=== PATIENT | female | born 1980 | race Caucasian/White ===

== ENCOUNTER 2017-04-08 12:49 | Observation (INO) | payer OTHER ==
[2017-04-08 12:49] VITALS: BMI 23.1
[2017-04-08] MEDS ORDERED: Sodium Chloride 0.9% 1,000 ML IV ONE ×2 (14:07→18:57)
--- NOTE | 2017-04-08 14:08 | C.PDOC ---
History Of Present Illness 36 year old female, 12 weeks confirmed by US, presents to the ED c/o vomiting. Patient reports her last OBGYN visit was yesterday after which she went [place] [facility] [place] to persistent [place]. She was prescribed antiemetics and discharged home. Shhe reports after getting home she had additional episodes of vomiting and decided to come in today to the ED because it was closer. Patient reports having episodes of hyperemesis in prior pregnancies. Patient denies vaginal bleeding, vaginal discharge, dysuria, hematuria, abdominal pain, back pain. Time Seen by Provider: 04/08/17 13:38 Chief Complaint (Nursing): GI Problem History Per: Patient History/Exam Limitations: no limitations Onset/Duration Of Symptoms: Days Current Symptoms Are (Timing): Still Present Location Of Pain/Discomfort: Diffuse Radiation Of Pain To:: None Associated Symptoms: Nausea, Vomiting Exacerbating Factors: None Alleviating Factors: None Recent travel outside of the [place]: No Additional History Per: Patient Abnormal Vaginal Bleeding: No Past Medical History Reviewed: Historical Data, Nursing Documentation, Vital Signs Vital Signs: Last Vital Signs Temp 98.2 F 04/08/17 13:08 Pulse 88 04/08/17 17:56 Resp 20 04/08/17 17:56 BP 112/76 04/08/17 17:56 Pulse Ox 97 04/08/17 18:54 - Medical History PMH: No Chronic Diseases Denies: Chronic Kidney Disease Surgical History: No Surg Hx Family History: States: Unknown Family Hx - Social History Hx Tobacco Use: No Hx Alcohol Use: No Hx Substance Use: No - Immunization History Hx Tetanus Toxoid Vaccination: No Hx Influenza Vaccination: No Hx Pneumococcal Vaccination: No Review Of Systems Constitutional: Negative for: Fever, Chills Cardiovascular: Negative for: Chest Pain Respiratory: Negative for: Cough, Shortness of Breath Gastrointestinal: Positive for: Nausea, Vomiting. Negative for: Abdominal Pain Genitourinary: Negative for: Dysuria, Hematuria, Vaginal Discharge, Vaginal Bleeding Musculoskeletal: Negative for: Back Pain Skin: Negative for: Rash Neurological: Negative for: Weakness, Numbness Physical Exam - Physical Exam Appears: Non-toxic, No Acute Distress Skin: Normal Color ([place]), Warm, Dry Head: Atraumatic, Normacephalic Nose: No Discharge Oral Mucosa: Moist Neck: Normal ROM, Supple Chest: Symmetrical Cardiovascular: Rhythm Regular, No Murmur Respiratory: Normal Breath Sounds, No Rales, No Rhonchi, No Wheezing Gastrointestinal/Abdominal: Soft, No Tenderness Back: No CVA Tenderness Extremity: Normal ROM, No Pedal Edema, No Calf Tenderness, No Deformity, No Swelling Neurological/Psych: Oriented x3, Normal Speech, Normal Cognition Gait: Steady ED Course And Treatment - Laboratory Results Result Diagrams: 04/08/17 14:17 04/08/17 14:17 O2 Sat by Pulse Oximetry: 97 (On RA) Pulse Ox Interpretation: Normal Progress Note: Plan: -VBG shock panel, Blood work, Pepcid 20 mg IVP, Reglan 10 mg IVP, IV fluids, UA Medical Decision Making Medical Decision Making: Labs show normal ph. Hypokalemic and replacement ordered. UA shows uti. Ketones in urine. Persistent vomiting after 6 hour ED stay. Spoke to ict managers, Dr. Almonte and will admit for hypermesis gravidum with uti. Requesting u/s that was ordered Disposition - Disposition Disposition: HOSPITALIZED Disposition Time: 18:58 Condition: FAIR Forms: [employer] (Luxembourger) - Clinical Impression Clinical Impression: Hyperemesis gravidarum - Scribe Statement The provider has reviewed the documentation as recorded by the Scribe Jordan Lim All medical record entries made by the Scribe were at my direction and personally dictated by me. I have reviewed the chart and agree that the record accurately reflects my personal performance of the history, physical exam, medical decision making, and the department course for this patient. I have also personally directed, reviewed, and agree with the discharge instructions and disposition.
[2017-04-08] MEDS ORDERED: Sodium Chloride 0.9% 1,000 ML ONE (14:19)
[2017-04-08 14:23] LABS: BASO % 0.2 % (0.0-2.0); EOS % 0.5 % (0.0-4.0); HEMOGLOBIN 13.5 g/dL (11.0-16.0); LYMPH # 1.6 K/uL (1.0-4.3); LYMPH % 18.8 % (20.0-40.0); MEAN CELL VOLUME 92.6 fL (81.0-99.0); MEAN CORPUSCULAR HEMOGLOBIN 31.5 pg (27.0-31.0); MEAN PLATELET VOLUME 8.5 fL (7.2-11.7); MONO # 0.5 K/uL (0.0-0.8); MONO % 5.6 % (0.0-10.0); NEUT # 6.3 K/uL (1.8-7.0); NEUT % 74.9 % (50.0-75.0); RBC 4.29 Mil/uL (3.80-5.20); RED CELL DISTRIBUTION WIDTH 14.5 % (11.5-14.5); WHITE BLOOD COUNT 8.4 K/uL (4.8-10.8)
[2017-04-08 14:28] LABS: VENOUS BLOOD GAS BASE EXCESS -4.6 mmol/L (0.0-2.0); VENOUS BLOOD GAS PCO2 32 mmHg (40-60); VENOUS BLOOD GAS PO2 36 mm/Hg (30-55); VENOUS BLOOD PH 7.39 (7.32-7.43)
[2017-04-08] MEDS ORDERED: Pyridoxine HCl 100 mg/ml Inj IV STA (14:36)
[2017-04-08 14:50] LABS: ALBUMIN 4.3 g/dL (3.5-5.0); ALT/SGPT 42 U/L (9-52); AST/SGOT 23 U/L (14-36); BLOOD UREA NITROGEN 5 mg/dL (7-17); CALCIUM 8.7 mg/dl (8.6-10.4); GFR AFRICAN-AMERICAN > 60; GFR NON-AFRICAN AMERICAN > 60; LIPASE 147 U/L (23-300); MAGNESIUM 1.7 mg/dL (1.6-2.3)
[2017-04-08 16:34] LABS: SQUAMOUS EPITHIAL 7 /hpf (0-5); URINE BACTERIA RARE (<OCC); URINE BILIRUBIN NEGATIVE (NEGATIVE); URINE BLOOD 2+ (NEGATIVE); URINE CLARITY Hazy (Clear); URINE COLOR Yellow (YELLOW); URINE GLUCOSE (UA) NORMAL (Normal); URINE LEUKOCYTE ESTERASE 1+ Leu/uL (Negative); URINE NITRATE NEGATIVE (NEGATIVE); URINE PROTEIN 1+ mg/dL (NEGATIVE); URINE UROBILINOGEN NORMAL mg/dL (0.2-1.0)
--- NOTE | 2017-04-08 20:54 | CP.PCM.HP ---
<Carissa Nelson - Last Filed: 04/08/17 21:06> History of Present Illness - History of Present Illness History of Present Illness: CC: "I have been vomiting" HPI: Patient is a 36 year old at 11w5d with RAMILA 10/23/17 by LMP 01/16/17 presents to the ED for nausea and vomiting that started 2 days ago. Patient states that she was seen [place] [facility] [place]. At that time she was discharged with reglan. When she went home she could not keep anything down which prompted this ED visit. Describes vomitus as greenish phelgm. Admits to having associated epigastric pain that is worse when vomiting. Described it as heart burn. Admits to having a headache. Denies dizziness, LOC, CP, palpitations , sob, lower abdominal cramping, urinary symptoms, diarrhea, constipation, vaginal bleeding. OBGYN: Dr. Ernie Gonzales (affiliated with [facility] s/p pelvic ultrasound 2 days ago, per patient "I was 12 weeks" OB Hx: 1. 2002 at term, 7lbs 4oz, at [facility] 2. 2008 at term, 6lbs 10oz, at [facility] 3. 2014 SAB at 17 weeks, induced for no heart rate 4. 2016 at term, 6lbs 4 oz, at [facility] 5. 2017 Ectopic treated with Methotrexate 6. Current FOOD QUALITY TESTER Hx: LMP - 01/16/17 [place] - 11 x regular x 4 days Hx of ovarian cysts Denies Hx of fibroids, abnormal pap smears, STIs Allergies: Morphine (itchy rash) Medications: None Medical Hx: Denies Surgical Hx: Denies Social Hx: Denies alcohol, tobacco, drug use; lives with FOB and three children , unemployed Family Hx: Mother age 52 - HTN ; Father age 56 - Hx of diverticulitis; Family Hx of colon/breast cancer Present on Admission - Present on Admission Any Indicators Present on Admission: No Review of Systems - Constitutional Constitutional: absent: Chills, Fever - EENT Eyes: absent: Change in Vision Ears: absent: Dizziness - Cardiovascular Cardiovascular: Lightheadedness. absent: Chest Pain, Dyspnea, Palpitations - Respiratory Respiratory: absent: Cough, Wheezing - Gastrointestinal Gastrointestinal: Heartburn, Nausea, Vomiting. absent: Cramping - Genitourinary Genitourinary: absent: Dysuria - Neurological Neurological: Headaches. absent: Dizziness Past Patient History - Past Medical History & Family History Past Medical History?: No - Past Social History Smoking Status: Never Smoked - CARDIAC Hx Cardiac Disorders: No - PULMONARY Hx Respiratory Disorders: No - NEUROLOGICAL Hx Neurological Disorder: No - HEENT Hx HEENT Problems: No - RENAL Hx Chronic Kidney Disease: No - ENDOCRINE/METABOLIC Hx Endocrine Disorders: No - HEMATOLOGICAL/ONCOLOGICAL Hx Blood Disorders: No - INTEGUMENTARY Hx Dermatological Problems: No - MUSCULOSKELETAL/RHEUMATOLOGICAL Hx Musculoskeletal Disorders: No Hx Falls: No - GASTROINTESTINAL Hx Gastrointestinal Disorders: No - GENITOURINARY/GYNECOLOGICAL Hx Genitourinary Disorders: No - PSYCHIATRIC Hx Substance Use: No - SURGICAL HISTORY Hx Surgeries: No - ANESTHESIA Hx Anesthesia: No Hx Anesthesia Reactions: No Meds Allergies/Adverse Reactions: Allergies Allergy/AdvReac Type Severity Reaction Status Date / Time morphine Allergy RASH Verified 04/08/17 13:10 Physical Exam - Constitutional Appears: Well, No Acute Distress - Head Exam Head Exam: ATRAUMATIC, NORMAL INSPECTION - Eye Exam Eye Exam: EOMI, Normal appearance, Nystagmus - ENT Exam ENT Exam: Mucous Membranes Moist - Respiratory Exam Respiratory Exam: NORMAL BREATHING PATTERN - Cardiovascular Exam Cardiovascular Exam: REGULAR RHYTHM Additional comments: Epigastric tenderness - GI/Abdominal Exam GI & Abdominal Exam: Soft, Tenderness (lower abdominal tenderness) - Exam Additional comments: SVE: Closed/thick/high - Extremities Exam Extremities exam: Positive for: normal inspection - Back Exam Back exam: NORMAL INSPECTION - Neurological Exam Neurological exam: Alert, Oriented x3 - Psychiatric Exam Psychiatric exam: Normal Affect, Normal Mood - Skin Skin Exam: Dry, Warm Additional comments: Albino Results - Vital Signs Recent Vital Signs: Last Vital Signs Temp 99.0 F 04/08/17 19:25 Pulse 96 H 04/08/17 19:25 Resp 16 04/08/17 19:25 BP 122/79 04/08/17 19:25 Pulse Ox 98 04/08/17 19:25 - Labs Result Diagrams: 04/08/17 14:17 04/08/17 14:17 Labs: Laboratory Results - last 24 hr 04/08/17 04/08/17 04/08/17 14:15 14:17 14:17 WBC 8.4 RBC 4.29 Hgb 13.5 D Hct 39.7 MCV 92.6 D MCH 31.5 H MCHC 34.0 RDW 14.5 Plt Count 248 MPV 8.5 Neut % (Auto) 74.9 Lymph % (Auto) 18.8 L [place] % (Auto) 5.6 Eos % (Auto) 0.5 Baso % (Auto) 0.2 Neut # 6.3 Lymph # 1.6 [place] # 0.5 Eos # 0.0 Baso # 0.0 pO2 36 VBG pH 7.39 VBG pCO2 32 L VBG HCO3 20.5 VBG Total CO2 20.4 L VBG O2 Sat (Calc) 75.4 H VBG Base Excess -4.6 L VBG Potassium 3.0 L Sodium 144.0 139 Chloride 110.0 H 104 Glucose 77 Lactate 0.9 Potassium 3.1 L Carbon Dioxide 25 Anion Gap 13 BUN 5 L Creatinine 0.5 L Est GFR ( Amer) > 60 Est GFR (Non-Af Amer) > 60 Random Glucose 88 Calcium 8.7 Phosphorus 2.8 Magnesium 1.7 Total Bilirubin 0.7 AST 23 ALT 42 Alkaline Phosphatase 46 Total Protein 8.4 H Albumin 4.3 Globulin 4.1 H Albumin/Globulin Ratio 1.0 Lipase 147 Venous Blood Potassium 3.0 L Urine Color Urine Clarity Urine pH Ur Specific [place] Urine Protein Urine Glucose (UA) Urine Ketones Urine Blood Urine Nitrate Urine Bilirubin Urine Urobilinogen Ur Leukocyte Esterase Urine WBC (Auto) Urine RBC (Auto) Ur Squamous Epith Cells Urine Bacteria 04/08/17 16:15 WBC RBC Hgb Hct MCV MCH MCHC RDW Plt Count MPV Neut % (Auto) Lymph % (Auto) Queens % (Auto) Eos % (Auto) Baso % (Auto) Neut # Lymph # [place] # Eos # Baso # pO2 VBG pH VBG pCO2 VBG HCO3 VBG Total CO2 VBG O2 Sat (Calc) VBG Base Excess VBG Potassium Sodium Chloride Glucose Lactate Potassium Carbon Dioxide Anion Gap BUN Creatinine Est GFR ( Amer) Est GFR (Non-Af Amer) Random Glucose Calcium Phosphorus Magnesium Total Bilirubin AST ALT Alkaline Phosphatase Total Protein Albumin Globulin Albumin/Globulin Ratio Lipase Venous Blood Potassium Urine Color Yellow Urine Clarity Hazy Urine pH 5.0 Ur Specific Lay[place] 1.021 Urine Protein 1+ H Urine Glucose (UA) Normal Urine Ketones 2+ H Urine Blood 2+ H Urine Nitrate Negative Urine Bilirubin Negative Urine Urobilinogen Normal Ur Leukocyte Esterase 1+ H Urine WBC (Auto) 14 H Urine RBC (Auto) 11 H Ur Squamous Epith Cells 7 H Urine Bacteria Rare Assessment & Plan - Assessment and Plan (Free Text) Assessment: 36 year old at 11w5d gestation presents with nausea and vomiting x 2 days, inability to tolerate PO, hypokalemia, and ketonuria consistent with hyperemesis gravidarum Plan: Hyperemesis Gravidarum -Admit to FOOD QUALITY TESTER -OB US ordered -Diet: NPO -Fluids: D5/NS with 20meq Kcl at 125cc/hr -Pyridoxine 50mg IV Q24H -Protonix 40mg IVP daily -Reglan 10mg Q6H DEN x 4 doses -F/U am CMP, TSH, Free T4 -SCDs prn -Will continue to monitor -Plan d/w attending Carissa Nelson DO PGY-1 <Riana Almonte A - Last Filed: 04/08/17 22:49> Results - Vital Signs Recent Vital Signs: Last Vital Signs Temp 99.0 F 04/08/17 19:25 Pulse 96 H 04/08/17 19:25 Resp 16 04/08/17 19:25 BP 122/79 04/08/17 19:25 Pulse Ox 98 04/08/17 19:25 - Labs Result Diagrams: 04/08/17 14:17 04/08/17 14:17 Labs: Laboratory Results - last 24 hr 04/08/17 04/08/17 04/08/17 14:15 14:17 14:17 WBC 8.4 RBC 4.29 Hgb 13.5 D Hct 39.7 MCV 92.6 D MCH 31.5 H MCHC 34.0 RDW 14.5 Plt Count 248 MPV 8.5 Neut % (Auto) 74.9 Lymph % (Auto) 18.8 L [place] % (Auto) 5.6 Eos % (Auto) 0.5 Baso % (Auto) 0.2 Neut # 6.3 Lymph # 1.6 [place] # 0.5 Eos # 0.0 Baso # 0.0 pO2 36 VBG pH 7.39 VBG pCO2 32 L VBG HCO3 20.5 VBG Total CO2 20.4 L VBG O2 Sat (Calc) 75.4 H VBG Base Excess -4.6 L VBG Potassium 3.0 L Sodium 144.0 139 Chloride 110.0 H 104 Glucose 77 Lactate 0.9 Potassium 3.1 L Carbon Dioxide 25 Anion Gap 13 BUN 5 L Creatinine 0.5 L Est GFR ( Amer) > 60 Est GFR (Non-Af Amer) > 60 Random Glucose 88 Calcium 8.7 Phosphorus 2.8 Magnesium 1.7 Total Bilirubin 0.7 AST 23 ALT 42 Alkaline Phosphatase 46 Total Protein 8.4 H Albumin 4.3 Globulin 4.1 H Albumin/Globulin Ratio 1.0 Lipase 147 Venous Blood Potassium 3.0 L Urine Color Urine Clarity Urine pH Ur Specific [place] Urine Protein Urine Glucose (UA) Urine Ketones Urine Blood Urine Nitrate Urine Bilirubin Urine Urobilinogen Ur Leukocyte Esterase Urine WBC (Auto) Urine RBC (Auto) Ur Squamous Epith Cells Urine Bacteria 04/08/17 16:15 WBC RBC Hgb Hct MCV MCH MCHC RDW Plt Count MPV Neut % (Auto) Lymph % (Auto) [place] % (Auto) Eos % (Auto) Baso % (Auto) Neut # Lymph # [place] # Eos # Baso # pO2 VBG pH VBG pCO2 VBG HCO3 VBG Total CO2 VBG O2 Sat (Calc) VBG Base Excess VBG Potassium Sodium Chloride Glucose Lactate Potassium Carbon Dioxide Anion Gap BUN Creatinine Est GFR ( Amer) Est GFR (Non-Af Amer) Random Glucose Calcium Phosphorus Magnesium Total Bilirubin AST ALT Alkaline Phosphatase Total Protein Albumin Globulin Albumin/Globulin Ratio Lipase Venous Blood Potassium Urine Color Yellow Urine Clarity Hazy Urine pH 5.0 Ur Specific [place] 1.021 Urine Protein 1+ H Urine Glucose (UA) Normal Urine Ketones 2+ H Urine Blood 2+ H Urine Nitrate Negative Urine Bilirubin Negative Urine Urobilinogen Normal Ur Leukocyte Esterase 1+ H Urine WBC (Auto) 14 H Urine RBC (Auto) 11 H Ur Squamous Epith Cells 7 H Urine Bacteria Rare Attending/Attestation - Attestation I have personally seen and examined this patient.: Yes I have fully participated in the care of the patient.: Yes I have reviewed all pertinent clinical information: Yes
[2017-04-08] MEDS: Potassium Chloride 20 MEQ in Dextrose 5%/0.9% NS 1,000 ML IV SCH (21:45)
--- NOTE | 2017-04-08 21:57 | US ---
EXAM: US First Trimester, Transabdominal EXAM DATE/TIME: Exam ordered 04/08/2017 6:57 PM CLINICAL HISTORY: 36 years old, female; Signs and symptoms; Lmp or gestational age (in weeks): 12w6d; Other: Vomiting , hyperemesis; ; Additional info: , hyperemesis, vomiting TECHNIQUE: Real-time transabdominal obstetrical ultrasound of the maternal pelvis and a first trimester with image documentation. COMPARISON: No relevant prior studies available. FINDINGS: Gestation: There is a single intrauterine . There is a pole with a crown-rump length measurement of 6.4 cm for menstrual age of 12 weeks and 6 days. Cardiac activity is noted at rate of 166 beats per minute. Placenta/amniotic fluid: The placenta is anterior. There is complete placenta previa. Uterus/cervix: The uterus measures 15.2 x 7.5 x 11.4 cm. The cervix is 4.1 cm in length and is closed at the time of the study. No myometrial mass. Ovaries: The right ovary measures 3.2 x 2.4 x 2.5 cm. Subcentimeter follicles are seen in the right ovary. Blood flow is seen in the right ovary color Doppler examination. The left ovary measures 3 x 2 x 2.4 cm. Subcentimeter follicles are seen in the left ovary. No mass. Free fluid: No free fluid. IMPRESSION: 1. Single live intrauterine with an estimated menstrual age of 12 weeks and 6 days plus or minus one week and one day. 2. Complete placenta previa.
[2017-04-08] MEDS ORDERED: SODIUM CHLORIDE 0.9% IV SCH (22:00)
[2017-04-08] MEDS ORDERED: PYRIDOXINE HCL IV SCH (22:00)
[2017-04-08] MEDS ORDERED: Pneumococcal 23-Valent Vaccine IM ONE (22:56)
[2017-04-08] MEDS ORDERED: Influenza Vaccine 60 mcg/0.5 mL SYR (4YR UP) IM ONE (22:57)
[2017-04-09] MEDS: Potassium Chloride 20 MEQ in Dextrose 5%/0.9% NS 1,000 ML IV SCH ×2 (04:50→13:33)
[2017-04-09 08:04] VITALS: RESP 20; O2SAT 99
[2017-04-09 08:29] LABS: ALB/GLOB RATIO 1.5 (1.0-2.1); ALBUMIN 3.6 g/dL (3.5-5.0); ALT/SGPT 37 U/L (9-52); AST/SGOT 18 U/L (14-36); BLOOD UREA NITROGEN 3 mg/dL (7-17); CALCIUM 8.1 mg/dl (8.6-10.4); GFR AFRICAN-AMERICAN > 60; GFR NON-AFRICAN AMERICAN > 60
[2017-04-09] MEDS ORDERED: Potassium Chloride 20 mEq ER Tab PO SCH (10:00)
[2017-04-09 17:10] VITALS: BP 118/70; PULSE 85; TEMP 98.2
[2017-04-10] MEDS ORDERED: Pantoprazole 40 mg EC Tab PO SCH (10:00)
--- NOTE | 2017-04-10 14:32 | DS ---
DISCHARGE DIAGNOSES: 1. Hyperemesis gravidarum. 2. Placenta previa. 3. Urinary tract infection. HISTORY OF PRESENTING ILLNESS: The patient is a 36-year-old female, 6, para 3, and 11 weeks and 5 days with LMP of 01/16/2017 and a due date of 10/23/2017, who presented to the ER with nausea and vomiting for more than 2 days. The patient states that she was seen at another hospital, which was [facility] for similar complaints and discharged home with Reglan. After discharge, at home, she could not keep anything down, and thereafter, she returned to the ED. The vomitus was greenish phlegm. She also complained of epigastric pain when she was vomiting as well as a headache, but she denied chest pain, shortness of breath, lower abdominal cramping, urinary symptoms, diarrhea, constipation, vaginal bleeding. She had care with Dr. Judith Gonzales. PAST MEDICAL HISTORY: She denies. PAST SURGICAL HISTORY: She denies. OBSTETRICS AND GYNECOLOGICAL HISTORY: Her last menstrual period was 01/16/2017. Reported history of ovarian cyst. Denies history of fibroids, abnormal Pap smears, or sexually transmitted diseases. History of 3 term vaginal deliveries, one spontaneous at 17 weeks, and history of an ectopic treated with methotrexate in 2017. PHYSICAL EXAMINATION: VITAL SIGNS: On admission revealed, the patient appeared in no acute distress. LUNGS: Clear to auscultation bilaterally. HEART: S1 and S2 present. ABDOMEN: Soft, and mild tenderness on the lower abdomen, with no rebound or guarding. NEUROLOGIC: She was alert and oriented x3. EXTREMITIES: There was no calf tenderness. HOSPITAL COURSE: The patient was seen in the ER because of nausea, vomiting and epigastric pain. A urinalysis was done and so were the labs done. The urinalysis was positive for protein, blood, ketones, leukocyte esterase, rbc's and wbc's. Hemoglobin was 13.5, and she was noted to have low potassium of 3.1. The patient was thereafter admitted, IV fluids mixed with potassium was started. She was also given vitamin B6. She was started initially on Reglan IV for the nausea. The patient's symptoms improved minimally with IV Reglan; thereafter oral Zofran was added to the regimen. Once on oral Zofran and the Reglan, the patient started tolerating clear liquids and then started tolerating regular diet. At the time of the discharge, the patient was tolerating a regular diet. She was ambulating and voiding without any problems, and she denies any further nausea. The patient was thereafter discharged home with script for Zoanthony, Roxana, Julisas, and a script for Keflex for UTI. The patient should follow up with her primary CAR SALES REPRESENTATIVE, Dr. Philip in 3 days. Pablo Chavez MD
== END 2017-04-09 19:36 | disposition home or self-care (01) ==
LOC: C.ER 12:49 → C.3T 18:55 → INTOOBSV 18:55
PROVIDERS: ADMIT Obstetrics & Gynecology; ATTEND Obstetrics & Gynecology
DX: O21.1 Hyperemesis gravidarum with metabolic disturbance (principal); O23.41 Unspecified infection of urinary tract in pregnancy, first trimester; E87.6 Hypokalemia; O44.01 Complete placenta previa NOS or without hemorrhage, first trimester; O99.281 Endocrine, nutritional and metabolic diseases complicating pregnancy, first trimester; O09.521 Supervision of elderly multigravida, first trimester; Z3A.12 12 weeks gestation of pregnancy
CPT/HCPCS: 36415; 76801; 80053; 81001; 82803; 83690; 83735; 84100; 84439; 84443; 85025; 87086; 87181; 96361; 96374; 96375; 96376; 99285; C9113; G0378; J2765; J3415; J3480; J7040; J7042

== ENCOUNTER 2017-04-22 23:12 | Emergency (ER) | payer OTHER ==
[2017-04-22 23:13] VITALS: BMI 23.1
[2017-04-22] MEDS ORDERED: Sodium Chloride 0.9% 1,000 ML IV ONE (23:26)
[2017-04-22] MEDS ORDERED: Aluminum Hydroxide/Magnesium Hydroxide Susp (30 mL) PO STA (23:26)
[2017-04-22] MEDS ORDERED: Belladonna-Phenobarbital PO STA (23:26)
[2017-04-22 23:36] LABS: BASO % 0.4 % (0.0-2.0); EOS # 0.1 K/uL (0.0-0.7); LYMPH % 17.2 % (20.0-40.0); MEAN CORPUSCULAR HEMOGLOBIN 32.3 pg (27.0-31.0); MEAN CORPUSCULAR HGB CONC 34.7 g/dL (33.0-37.0); MEAN PLATELET VOLUME 8.7 fL (7.2-11.7); MONO # 0.5 K/uL (0.0-0.8); MONO % 8.2 % (0.0-10.0); NEUT # 4.4 K/uL (1.8-7.0); NEUT % 73.2 % (50.0-75.0); NRBC % 0.1 % (0.0-2.0); RBC 4.01 Mil/uL (3.80-5.20); RED CELL DISTRIBUTION WIDTH 14.7 % (11.5-14.5)
[2017-04-22] MEDS ORDERED: Aluminum Hydroxide/Magnesium Hydroxide Susp (30 mL) ONE (23:38)
[2017-04-22] MEDS ORDERED: Sodium Chloride 0.9% 1,000 ML ONE (23:38)
[2017-04-22 23:51] LABS: ALB/GLOB RATIO 0.9 (1.0-2.1); ALBUMIN 4.1 g/dL (3.5-5.0); ALT/SGPT 31 U/L (9-52); AST/SGOT 31 U/L (14-36); BLOOD UREA NITROGEN 8 mg/dL (7-17); CALCIUM 9.2 mg/dl (8.6-10.4); GFR AFRICAN-AMERICAN > 60; GFR NON-AFRICAN AMERICAN > 60; LIPASE 130 U/L (23-300)
--- NOTE | 2017-04-23 00:53 | C.PDOC ---
History Of Present Illness 36 year old female who is 14 weeks present to the ED for evaluation of nausea, vomit all day and also states he is not able to hold anything down. Patient reports she is taking Reglan, Pepcid, and Zofran but is not able to hold the medications down. Patient states she develops a rash from morphine and denies any previous history of surgeries. Patient's recent US showed an IUP. Patient denies abdominal pain, vaginal discharge, vaginal bleeding, back pain. Time Seen by Provider: 04/22/17 23:24 Chief Complaint (Nursing): GI Problem History Per: Patient History/Exam Limitations: no limitations Onset/Duration Of Symptoms: Hrs Current Symptoms Are (Timing): Still Present Radiation Of Pain To:: None Associated Symptoms: Nausea, Vomiting, Loss Of Appetite Exacerbating Factors: None Alleviating Factors: None Recent travel outside of the [place] States: No Additional History Per: Patient Abnormal Vaginal Bleeding: No Past Medical History Reviewed: Historical Data, Nursing Documentation, Vital Signs Vital Signs: Last Vital Signs Temp 97.6 F 04/23/17 05:13 Pulse 85 04/23/17 05:13 Resp 20 04/23/17 05:13 BP 116/70 04/23/17 05:13 Pulse Ox 98 04/23/17 05:13 - Medical History PMH: No Chronic Diseases Denies: Chronic Kidney Disease Surgical History: No Surg Hx Family History: States: Unknown Family Hx - Social History Hx Tobacco Use: No Hx Alcohol Use: No Hx Substance Use: No - Immunization History Hx Tetanus Toxoid Vaccination: No Hx Influenza Vaccination: No Hx Pneumococcal Vaccination: No Review Of Systems Constitutional: Negative for: Fever, Chills Cardiovascular: Negative for: Chest Pain Respiratory: Negative for: Cough, Shortness of Breath Gastrointestinal: Positive for: Nausea, Vomiting. Negative for: Abdominal Pain Genitourinary: Negative for: Vaginal Discharge, Vaginal Bleeding Musculoskeletal: Negative for: Back Pain Skin: Negative for: Rash Neurological: Negative for: Weakness, Numbness Physical Exam - Physical Exam Appears: Non-toxic, No Acute Distress Skin: Normal Color, Warm, Dry Head: Atraumatic, Normacephalic Nose: No Discharge Oral Mucosa: Moist Neck: Normal ROM, Supple Chest: Symmetrical Cardiovascular: Rhythm Regular, No Murmur Respiratory: Normal Breath Sounds, No Rales, No Rhonchi, No Wheezing Gastrointestinal/Abdominal: Soft, No Tenderness Extremity: Normal ROM, No Pedal Edema, No Calf Tenderness, No Deformity, No Swelling Neurological/Psych: Oriented x3, Normal Speech, Normal Cognition Gait: Steady ED Course And Treatment - Laboratory Results Result Diagrams: 04/22/17 23:33 04/22/17 23:33 ECG: Interpreted By Me, Viewed By Me ECG Rhythm: Sinus Rhythm Interpretation Of ECG: NV 130, QRS 76, QTR 420, QTC 481 no ischemic changes Rate From EC O2 Sat by Pulse Oximetry: 98 (On RA) Pulse Ox Interpretation: Normal Medical Decision Making Medical Decision Making: Plan: * IV fluids * Blood work * UA * * Maalox * Magnesium Sulfate * Pepcid * Reglan Disposition - Disposition Referrals: [facility] [facility] [Outside] [facility] [place] [Outside] Disposition: HOME/ ROUTINE Disposition Time: 09:30 Condition: STABLE Additional Instructions: return if symptoms worsen, dizziness, lightheadedness Prescriptions: Metoclopramide [Reglan] 10 mg PO Q6 5 Days #15 tab Instructions: Hyperemesis Gravidarum (ED) Forms: [employer] (Swedish) - Clinical Impression Clinical Impression: Nausea & vomiting, Vomiting of - Scribe Statement The provider has reviewed the documentation as recorded by the Scribe Jordan Lim All medical record entries made by the Scribe were at my direction and personally dictated by me. I have reviewed the chart and agree that the record accurately reflects my personal performance of the history, physical exam, medical decision making, and the department course for this patient. I have also personally directed, reviewed, and agree with the discharge instructions and disposition.
[2017-04-23] MEDS ORDERED: Magnesium Sulfate 1 gm in D5W 1 GM/100 ML BAG IVPB ONE ×2 (01:02→01:10)
[2017-04-23] MEDS ORDERED: Sodium Chloride 0.9% 1,000 ML IV ONE (03:12)
[2017-04-23] MEDS ORDERED: Sodium Chloride 0.9% 1,000 ML ONE (03:19)
[2017-04-23 04:15] VITALS: RESP 20
[2017-04-23] MEDS ORDERED: Potassium Chloride 20 mEq ER Tab PO ONE (04:34)
[2017-04-23] MEDS ORDERED: Potassium Chloride 20 mEq ER Tab PO STA (04:35)
[2017-04-23 04:39] LABS: URINE BILIRUBIN NEGATIVE (NEGATIVE); URINE BLOOD 1+ (NEGATIVE); URINE CLARITY Hazy (Clear); URINE COLOR Yellow (YELLOW); URINE GLUCOSE (UA) NORMAL (Normal); URINE LEUKOCYTE ESTERASE TRACE Leu/uL (Negative); URINE NITRATE NEGATIVE (NEGATIVE); URINE PROTEIN NEGATIVE (NEGATIVE)
[2017-04-23 04:44] LABS: SQUAMOUS EPITHIAL 11 /hpf (0-5)
[2017-04-23 04:45] LABS: URINE BACTERIA RARE (<OCC)
[2017-04-23 05:02] VITALS: O2SAT 98
[2017-04-23 05:26] VITALS: BP 116/70; PULSE 85; TEMP 97.6
[2017-04-23] MEDS ORDERED: Potassium Chloride 20 mEq ER Tab PO SCH (10:00)
--- NOTE | 2017-04-28 11:49 | CARD ---
APPROVED REPORT EKG Measurement Heart [id number] OH 130P11 [id number] <Conclusion> Normal sinus rhythm T wave abnormality, consider inferior ischemia Abnormal ECG
== END 2017-04-23 05:39 | disposition home or self-care (01) ==
LOC: C.ER 23:12
DX: O21.9 Vomiting of pregnancy, unspecified (principal); Z3A.14 14 weeks gestation of pregnancy
CPT/HCPCS: 36415; 80053; 81001; 83690; 85025; 93005; 96361; 96365; 96375; 99285; J2765; J3475; J7040